=== PATIENT | male | born 1975 | race Caucasian/White ===

== ENCOUNTER 2020-03-04 16:49 | Emergency (ER) | payer BC, SELFPAY ==
--- NOTE | 2020-03-04 16:55 | ECG_ITS ---
APPROVED REPORT Exam: Resting ECG HR:105 bpm ECG Measurements Heart Rate 105 AXES OR 144 P 32 QRSd 102 QRS 18 QT 362 T 33 QTc 478 <Conclusion> Sinus tachycardia Incomplete right bundle branch block Borderline ECG Electronically signed by : Emiliano Jones, 03/05/2020 09:40:52
[2020-03-04 16:59] VITALS: BP 159/98; PULSE 111; RESP 17; TEMP 36.8; O2SAT 100; BMI 25.0
--- NOTE | 2020-03-04 17:03 | XR_ITS ---
PROCEDURE: XR CHEST 2V CLINICAL HISTORY: shortness of breath COMPARISON: No exams were available for comparison FINDINGS: The cardiomediastinal silhouette and pulmonary vascularity are within normal limits. No lobar consolidation or collapse. There is a 3 mm nodule in the right upper lobe at the 2nd interspace and 1 in the right upper lobe at the 3rd and 1 in the left apex interspace possibly due to granulomas and may be confirmed with follow-up. Straightening of the thoracic kyphosis. IMPRESSION: No acute finding. Two nodular opacities right upper lobe and 1 in the left apex nonspecific possibly due to granulomas and may be confirmed with follow-up Dictated by: Ludwin Deleon MD 03/04/2020 17:43 Ludwin Deleon MD in [place] 03/04/2020 17:43
--- NOTE | 2020-03-04 17:07 | HMH.EDGENADL ---
ED Disposition Clinical Impression: Lung granuloma, Tobacco use disorder Upper respiratory infection Qualifiers: URI type: unspecified viral URI Qualified Code(s): J06.9 - Acute upper respiratory infection, unspecified Disposition: Home, Self-Care Condition on Discharge: Good Instructions: DI for Pulmonary Nodule Additional Instructions: You have been evaluated for chest congestion, cough. COVID test negative today. Found to have a lung nodule. Please follow-up with your primary care doctor. Return to the emergency department if you have any new or worsening symptoms, shortness of breath, difficulty breathing, chest pain. Referrals: PCP,No [Primary Care Provider] - Forms: Work/School Release Time of Disposition: 18:11 - Critical Care Critical Care Time: No Attestation: On 03/04/20, the high probability of a clinically significant, sudden or life threatening deterioration of the following system(s) required my full and direct attention, intervention and personal management. The time I documented below is in addition to time spent performing reported procedures but includes the following listed in this critical care notation. Medical Decision Making - Medical Records Medical records reviewed: Yes: I reviewed the patient's medical records. - Rayshawn Inquiry Pt receiving controlled substance: No Vital Signs: 03/04/20 16:59 03/04/20 18:16 Temperature 98.2 F 98.3 F Temperature Source Oral Pulse Rate 85 Pulse Rate [Right Radial] 111 H Respiratory Rate 17 16 Blood Pressure 120/79 Blood Pressure [Right Arm] 159/98 H Blood Pressure Mean [Right Arm] 118 02 Sat by Pulse Oximetry 100 Oxygen Delivery Method Room Air - Lab Data Lab Results 03/04/20 17:01: WBC 14.1 H, RBC 4.62, Hgb 15.6, Hct 45.0, MCV 97.5 H, MCH 33.8 H, MCHC 34.6, RDW 13.7, Plt Count 341, MPV 7.7, Neut % (Auto) 67.8, Lymph % (Auto) 25.7, [place] % (Auto) 4.4, Eos % (Auto) 1.3, Baso % (Auto) 0.9, Neut # (Auto) 9.6 H, Lymph # (Auto) 3.7, [place] # (Auto) 0.6, Eos # (Auto) 0.2, Baso # (Auto) 0.1 03/04/20 17:01: Sodium 137, Potassium 4.1, Chloride 101, Carbon Dioxide 25, Anion Gap 11.0, BUN 9, Creatinine 1.00, Estimated Creat Clear 121, Estimated GFR 81, Est GFR ( Amer) 98, Glucose 187 H, Calcium 9.5, Total Bilirubin 0.4, AST 31, ALT 32, Alkaline Phosphatase 84, Troponin I < 0.01, Total Protein 8.1, Albumin 4.4, Globulin 3.7 H, Albumin/Globulin Ratio 1.2 03/04/20 17:05: SARS-CoV-2 IgG Ab (Rapid) Negative, SARS-CoV-2 IgM Ab (Rapid) Negative Result diagrams: 03/04/20 17:01 03/04/20 17:01 Orders (Tests/Meds): ORDERS Category Date Time Status Covid-19 Nasal PCR Sendout [facility] Stat Lab 03/04/20 17:25 Received Troponin I Q3H Lab 03/04/20 20:15 Ordered Troponin I Q3H Lab 03/04/20 23:15 Ordered - CONSUELO Score for Non-Stemi Age of Patient: 40-49 years old Heart Rate: 90-109 bpm Systolic Blood Pressure: 140-159 mmHg Serum Creatinine: 0.80-1.19 mg/dl CHF Killip Class: I-No CHF Other Risk Factors: None Non-Stemi Risk Score: 71 Medical Decision Narrative: In summary this is a 44-year-old male presenting to the emergency department with headache, chest congestion, dyspnea. Patient is clinically stable on arrival. Vital signs within normal limits with the exception of tachycardia. Concern for COVID-19, viral upper respiratory infection, pericarditis, other viral syndrome. Plan to obtain CBC, CMP, chest x-ray, EKG, troponin profile, COVID test. Initial laboratory results show white count of 14 K with neutrophil predominance. Other laboratory results are generally unremarkable. Chest x-ray shows 2 small abnormalities in the right upper lobe, concerning for granulomas. Patient is a cigarette smoker. I counseled him on tobacco cessation as well as the need to have follow-up with his primary care physician. COVID IgG and IgM negative. COVID swab pending. Patient counseled on infection prevention and self-isolation. Stable for discha
[2020-03-04 17:16] LABS: Basophils # 0.1 K/mm3 (0-0.2); Basophils % 0.9 % (0.1-2.0); Eosinophils # 0.2 K/mm3 (0.0-0.4); Eosinophils % 1.3 % (0.1-12.0); Hemoglobin 15.6 g/dL (14.1-18.0); Lymphocytes # 3.7 K/mm3 (0.7-4.5); Lymphocytes % 25.7 % (10-50); Mean Corpuscular HGB Conc 34.6 g/dL (31.8-35.4); Mean Corpuscular Hemoglobin 33.8 pg (27.0-31.2); Mean Corpuscular Volume 97.5 fl (80-94); Mean Platelet Volume 7.7 fl (7.4-10.4); Monocytes # 0.6 K/mm3 (0.1-1.0); Monocytes % 4.4 % (1.7-9.3); Neutrophils # 9.6 K/mm3 (1.8-7.8); Neutrophils % 67.8 % (37.0-80.0); Platelet Count 341 K/mm3 (142-424); Red Blood Count 4.62 M/mm3 (4.60-6.20); Red Cell Distribution Width 13.7 % (11.5-17.5); White Blood Count 14.1 K/mm3 (4.8-10.8)
[2020-03-04 17:20] LABS: Chloride 101 mmol/L (98-107); Potassium 4.1 mmoL/L (3.5-5.1); Sodium 137 mmol/L (136-145)
[2020-03-04 17:23] LABS: Alanine Aminotransferase 32 U/L (12-78); Albumin Level 4.4 g/dl (3.5-5.0); Albumin/Globulin Ratio 1.2 (1.1-1.8); Alkaline Phosphatase 84 U/L (38-126); Aspartate Amino Transferase 31 U/L (17-59); Bilirubin,Total 0.4 mg/dl (0.2-1.3); Blood Urea Nitrogen 9 mg/dl (9-20); Carbon Dioxide 25 mmol/L (22.0-30.0); Creatinine Clearance Estimated 121 mL/min (50-200); Estimated Glomerular Filt Rate 81 ml/min (>60); GFR (African American) 98 ML/MIN (>60); Globulin 3.7 g/dL (1.3-3.2); Total Protein,Serum 8.1 g/dl (6.3-8.2)
[2020-03-04 17:24] LABS: Calcium 9.5 mg/dl (8.4-10.2); Glucose 187 mg/dl (74-100)
[2020-03-04 17:37] LABS: Troponin I < 0.01 ng/ml (0.00-0.034)
[2020-03-04 17:58] LABS: Coronavirus 19 IgG Antibody Negative (Negative); Coronavirus 19 IgM Antibody Negative (Negative)
[2020-03-04 18:16] VITALS: BP 120/79; PULSE 85; RESP 16; TEMP 36.8; O2SAT 99
[2020-03-06 15:59] LABS: Covid-19 Nasal PCR Sendout Lex Not Detected
== END 2020-03-04 18:31 | disposition home or self-care (01) ==
PROVIDERS: Emergency Provider Emergency Medicine
DX: J84.10 Pulmonary fibrosis, unspecified (principal); J06.9 Acute upper respiratory infection, unspecified; F17.210 Nicotine dependence, cigarettes, uncomplicated; Z20.828 Contact with and (suspected) exposure to other viral communicable diseases
CPT/HCPCS: 71046; 80053; 84484; 85025; 86328; 93005; 99283; U0004

== ENCOUNTER 2022-03-05 11:01 | Emergency (ER) | payer BC, SELFPAY ==
[2022-03-05 13:15] VITALS: BP 163/96; PULSE 121; RESP 22; TEMP 37.4; O2SAT 99; BMI 27.5
[2022-03-05 13:32] LABS: UTC Influenza A Antigen Negative (Negative); UTC Influenza B Antigen Negative (Negative)
--- NOTE | 2022-03-05 13:40 | EXP.UTC ---
Discharge Plan Disposition Patient Disposition: Home, Self-Care Condition: Good Prescriptions Prescriptions: New methylprednisolone [Medrol (Rakan)] 4 mg tablets,dose pack 4 mg PO DAILY Qty: 21 0RF amoxicillin-pot clavulanate 500-125 mg Tablet 1 tab PO Q12H Qty: 20 0RF Referrals Follow up/Referrals: Provider,Referral, [Primary Care Provider] - See instructions Activity Restrictions/Add. Instructions Additional Instructions/Restrictions: *Monitor Temp, Over the counter Motrin or Tylenol as directed/as needed Tylenol every 4 hours and Motrin every 6 hours (as long as your family doctor has told you that you can take it) for fever or pain. and straight to ER if unable to lower temp less than 101.0 after medication given *Warm salt water gargles may help to soothe the throat *Throat Lozenges? *Warm fluids like tea with honey may help to soothe the throat? *Sleep elevated *Humidifier/Vaporizer Follow up IMMEDIATELY for new or worsening symptoms or no Noticeable improvement over the next 48-72 hours. 911 for difficulty breathing or swallowing You were tested for today for COVID19 your test result should be back in the next 24-48 hours, you may check your results on the [facility] My Health Portal Make sure to take your Vitamins Vit. C Vit D and Zinc if you can take them Clinical Impressions Clinical Impression: Sinusitis Stand Alone Forms Stand Alone Forms: Work/School Release Instructions Patient Instructions: Sinusitis, DI for Sinusitis Discharge ED Provider: Eileen Ya [facility] [place] HPI General Stated complaint: fever, muscle cramps, shaky Mode of Arrival: Ambulatory Source of Information: Patient Limitations: No Limitations Time Seen by Provider: 03/05/22 13:48 Description of Symptoms (Recalled from Triage Doc. by RN): PATIENT C/O FEVER, BODY ACHES, AND MUSCLE CRAMPS X 2 DAYS HEENT Symptoms (Recalled from RN notes): No Resp Symptoms (Recalled from RN notes): No Skin Symptoms (Recalled from RN notes): No MS Symptoms (Recalled from RN notes): No Functional Status (Recalled from RN notes): WNL History of Present Illness Provider Complaint: Patient states that he has been having body aches, chills, sinus congestion and pressure, pressure in his ears and fever for the last couple of days States that today the sinus pressure was worse and had a sinus headache so he came in to get checked States that he took a couple at home COVID test and they was negative Related Data Previous Rx's Medication Instructions Recorded amoxicillin 500 mg-potassium 1 tab PO Q12H #20 tabs 03/05/22 clavulanate 125 mg tablet methylprednisolone 4 mg tablets in 4 mg PO DAILY #21 tabs 03/05/22 a dose pack (Medrol (Rakan)) Allergies Allergy/AdvReac Type Severity Reaction Status Date / Time No Known Allergies Allergy Verified 03/04/20 17:03 Worker's Comp Is this a Worker's Comp case?: No PFSH PFSH 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 (Updated 03/05/22 @ 13:59 by Eileen Ya APRN) Hyperlipidemia Hypertension Surgical History (Updated 03/05/22 @ 13:28 by Marcelina Jiménez RN) H/O right heart catheterization Social History (Updated 03/05/22 @ 13:28 by Marcelina Jiménez RN) Smoking Status: Current every day smoker alcohol intake: current current occupational status: employed Travel in the last 8 weeks: None ROS Obtained: Yes All systems reviewed & no additional complaints except as documented and Yes Systems reviewed as appropriate & no additional complaints except as documented Constitutional Constitutional: Reports system reviewed and no additional complaints, except as documented, Reports as per HPI, Reports body ache, Reports chills, Reports fever(s) and Reports headache(s) ENT Ears, Nose, Mouth, and Throat: Reports system reviewed and no additional complaints, except as documented, Reports as per HPI, Reports otalgia, Reports headache(s), Reports sinus pain and Reports sinus pressure [facility]
[2022-03-05 14:12] VITALS: BP 163/96; PULSE 121; RESP 22; TEMP 37.4; O2SAT 99
== END 2022-03-05 14:16 | disposition home or self-care (01) ==
PROVIDERS: Emergency Provider Nurse Practitioner
DX: R50.9 Fever, unspecified (principal); R25.2 Cramp and spasm; R00.0 Tachycardia, unspecified; M79.10 Myalgia, unspecified site; R51.9 Headache, unspecified; Z20.822 Contact with and (suspected) exposure to COVID-19; I10 Essential (primary) hypertension; E78.5 Hyperlipidemia, unspecified; F17.210 Nicotine dependence, cigarettes, uncomplicated; Z79.52 Long term (current) use of systemic steroids; Z79.899 Other long term (current) drug therapy
CPT/HCPCS: 87804; 99213; C9803; G0463; U0003; U0005

== ENCOUNTER 2022-05-26 17:38 | Emergency (ER) | payer BC, SELFPAY ==
[2022-05-26 19:04] VITALS: BP 143/91; PULSE 99; RESP 18; TEMP 37.2; O2SAT 99; BMI 29.2
--- NOTE | 2022-05-26 19:25 | EXP.UTC ---
Discharge Plan Disposition Patient Disposition: Home, Self-Care Condition: Good Prescriptions Prescriptions: No Action methylprednisolone [Medrol (Rakan)] 4 mg tablets,dose pack 4 mg PO DAILY Qty: 21 0RF amoxicillin-pot clavulanate 500-125 mg Tablet 1 tab PO Q12H Qty: 20 0RF Referrals Follow up/Referrals: Melvin Rodriguez APRN [Primary Care Provider] - See instructions Clinical Impressions Clinical Impression: Upper respiratory infection Stand Alone Forms Stand Alone Forms: Work/School Release Instructions Patient Instructions: DI for Viral Upper Respiratory Infection -- Adult Discharge ED Provider: Marco Antonio CarrRUST)Rufina [facility] [place] HPI General Stated complaint: POSS FEVER, COUGH, CHILLS Mode of Arrival: Ambulatory Source of Information: Patient Limitations: No Limitations Time Seen by Provider: 05/26/22 19:25 Description of Symptoms (Recalled from Triage Doc. by RN): pt comes in with c/o fever, body aches, cough, chills. symptoms began today HEENT Symptoms (Recalled from RN notes): No Resp Symptoms (Recalled from RN notes): No Skin Symptoms (Recalled from RN notes): No MS Symptoms (Recalled from RN notes): Yes Functional Status (Recalled from RN notes): n/a History of Present Illness Provider Complaint: 46 yr old female c/o fever, body aches, cough, chills. symptoms began today feels like he did when he had covid Related Data Previous Rx's Medication Instructions Recorded amoxicillin 500 mg-potassium 1 tab PO Q12H #20 tabs 03/05/22 clavulanate 125 mg tablet methylprednisolone 4 mg tablets in 4 mg PO DAILY #21 tabs 03/05/22 a dose pack (Medrol (Rakan)) Allergies Allergy/AdvReac Type Severity Reaction Status Date / Time No Known Allergies Allergy Verified 05/26/22 19:09 Worker's Comp Is this a Worker's Comp case?: No [facility] Disclaimer: The information contained in this section may have been updated after the patient was seen, as this information can be updated by other users. 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) Smoking Status: Current every day smoker alcohol intake: current current occupational status: employed Travel in the last 8 weeks: None ROS Obtained: Yes All systems reviewed & no additional complaints except as documented and Yes Systems reviewed as appropriate & no additional complaints except as documented Constitutional Constitutional: Reports system reviewed and no additional complaints, except as documented, Reports as per HPI, Reports body ache, Reports chills, Reports fatigue and Reports fever(s) Eyes Eyes: Reports system reviewed and no additional complaints, except as documented and Reports as per HPI ENT Ears, Nose, Mouth, and Throat: Reports system reviewed and no additional complaints, except as documented, Reports as per HPI, Reports nasal congestion and Reports sore throat Cardiovascular Cardiovascular: Reports system reviewed and no additional complaints, except as documented and Reports as per HPI Respiratory Respiratory: Reports system reviewed and no additional complaints, except as documented and Reports as per HPI Gastrointestinal Gastrointestingal: Reports system reviewed and no additional complaints, except as documented and as per HPI Genitourinary Male Genitourinary: Reports system reviewed and no additional complaints, except as documented and Reports as per HPI Musculoskeletal Musculoskeletal: Reports system reviewed and no additional complaints, except as documented and Reports as per HPI Integumentary/Breasts Skin/Breast: Reports system reviewed and no additional complaints, except as documented and Reports as per HPI Neurologic Neurologic: Reports system reviewed and no additional compl
[2022-05-26 19:52] VITALS: BP 143/91; PULSE 99; RESP 18; TEMP 37.2
== END 2022-05-26 19:53 | disposition home or self-care (01) ==
PROVIDERS: Emergency Provider Nurse Practitioner Family; PCP Nurse Practitioner Family
DX: J06.9 Acute upper respiratory infection, unspecified (principal)
CPT/HCPCS: 87275; 87276; 99212; C9803; G0463; U0003; U0005

== ENCOUNTER 2023-06-25 13:37 | Emergency (ER) | payer BC, SELFPAY ==
[2023-06-25 13:45] VITALS: BP 148/104; PULSE 111; RESP 20; TEMP 36.9; O2SAT 98; BMI 29.0
--- NOTE | 2023-06-25 13:50 | EXP.UTC ---
Discharge Plan Disposition Patient Disposition: Home, Self-Care Condition: Good Prescriptions Prescriptions: New azithromycin [Zithromax] 250 mg tablet 250 mg PO UD DOSE PK Qty: 6 0RF Rx Instructions: Take two (2) tablets today, then one (1) tablet days #2 thru #5 benzonatate [benzonatate] 100 mg capsule 100 mg PO TIDP PRN (Reason: Cough) Qty: 30 0RF methylprednisolone 4 mg Tablets,Dose Pack 4 mg PO DIRECTED 6 Days Qty: 21 0RF Rx Instructions: Take 1 pack as directed for 6 days No Action atorvastatin 40 mg tablet 40 mg PO DAILY Patient Comments: TAKE 1 TABLET BY MOUTH AT BEDTIME metoprolol succinate 50 mg tablet extended release 24 hr 50 mg PO DAILY aspirin 81 mg Tablet,Chewable 81 mg PO DAILY lisinopril 5 mg tablet 10 mg PO AM Patient Comments: TAKE 2 TABLETS BY MOUTH ONCE DAILY IN THE MORNING AND 1 IN THE EVENING lisinopril 5 mg tablet 5 mg PO PM Patient Comments: TAKE 2 TABLETS BY MOUTH ONCE DAILY IN THE MORNING AND 1 IN THE EVENING Brilinta 90 mg tablet 90 mg PO BID Patient Comments: TAKE 1 TABLET BY MOUTH TWICE DAILY Referrals Follow up/Referrals: Provider,Referral, MD [Primary Care Provider] - See instructions Activity Restrictions/Add. Instructions Additional Instructions/Restrictions: Drink plenty of fluids. Take tylenol or ibuprofen for pain or fever. Take the medications as directed. Follow up with your regular doctor. GO TO THE ER FOR ANY WORSENING SYMPTOMS Clinical Impressions Clinical Impression: Acute bronchitis Stand Alone Forms Stand Alone Forms: Work/School Release Instructions Patient Instructions: Acute Bronchitis, DI for Acute Bronchitis Discharge ED Provider: Zac Call [facility] [place] General Stated complaint: cough, congestion Time Seen by Provider: 06/25/23 13:50 History of Present Illness Provider Complaint: He states that for the past 4 days he has had cough, chest congestion and sore throat. Related Data Home Medications Medication Instructions Recorded Confirmed aspirin 81 mg chewable tablet 81 mg PO DAILY 06/25/23 06/25/23 atorvastatin 40 mg tablet 40 mg PO DAILY 06/25/23 06/25/23 lisinopril 5 mg tablet 5 mg PO PM 06/25/23 06/25/23 lisinopril 5 mg tablet 10 mg PO AM 06/25/23 06/25/23 metoprolol succinate 50 mg 50 mg PO DAILY 06/25/23 06/25/23 tablet,extended release 24 hr ticagrelor 90 mg tablet (Brilinta) 90 mg PO BID 06/25/23 06/25/23 Previous Rx's Medication Instructions Recorded azithromycin 250 mg tablet 250 mg PO UD DOSE PK #6 tabs 06/25/23 (Zithromax) benzonatate 100 mg capsule 100 mg PO TIDP PRN Cough #30 caps 06/25/23 methylprednisolone 4 mg tablets in 4 mg PO DIRECTED 6 days #21 tabs 06/25/23 a dose pack Allergies Allergy/AdvReac Type Severity Reaction Status Date / Time No Known Allergies Allergy Verified 05/26/22 19:09 [facility] Disclaimer: The information contained in this section may have been updated after the patient was seen, as this information can be updated by other users. 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 (Updated 06/25/23 @ 14:28 by Zac Call APRN) Hyperlipidemia Hypertension Surgical History (Updated 06/25/23 @ 13:57 by Marcelina Jiménez RN) H/O right heart catheterization History of heart artery stent Social History , [employer]) Smoking Status: Current every day smoker alcohol intake: current current occupational status: employed Travel in the last 8 weeks: None ROS Obtained: Yes All systems reviewed & no additional complaints except as documented Constitutional Constitutional: Reports poor appetite Eyes Eyes: Reports system reviewed and no additional complaints, except as documented ENT Ears, Nose, Mouth, and Throat: Reports as per HPI Cardiovascular Cardiovascular: Reports system reviewed and no additional complaints, except as documented and Denies chest pain Respiratory Respiratory: Denies shortness of breath, Reports chest congestion, Reports cough, Denies stridor and Denies wheezing Gastrointestinal Gastrointestingal: Reports system reviewed and no additional complaints, except as documented; Denies abdominal pain, diarrhea or vomiting Musculoskeletal Musculoskeletal: Reports system reviewed and no additional complaints, except as documented and Denies arthralgias Integumentary/Breasts Skin/Breast: Reports system reviewed and no additional complaints, except as documented and Denies rash Neurologic Neurologic: Denies paresthesias Allergic/Immunologic Allergic/Immunologic: Denies wheezing Physical Exam General General appearance: alert and in no apparent distress Eye Eye exam: Present normal appearance, PERRL and EOMI ENT ENT exam: Present mucous membranes moist and normal external ear exam Expanded ENT Exam External ear exam: Present normal external inspection TM/Canal exam: Bilateral TM: erythema and bulging Nose exam: Absent sinus tenderness Nasal speculum exam: Bilateral: normal Mouth exam: Present normal external inspection; Absent drooling Teeth exam: Present normal inspection Throat exam: Present tonsillar erythema and tonsillomegaly Neck Neck exam: Present normal inspection, full ROM and trachea midline; Absent tenderness, lymphadenopathy or thyromegaly Chest Chest inspection: Present normal inspection and symmetric chest wall rise; Absent tenderness or rash Respiratory Respiratory exam: Present normal lung sounds bilaterally; Absent respiratory distress, wheezes, stridor or accessory muscle use Cardiovascular Cardiovascular exam: Present regular rate, normal rhythm and normal heart sounds Abdominal Exam Abdominal exam: Present soft; Absent distention, tenderness, guarding, rebound or rigidity Extremities Exam Extremities exam: Present normal inspection, full ROM and normal capillary refill; Absent tenderness or calf tenderness Back Exam Back exam: Present normal inspection and full ROM; Absent tenderness Neurological Exam Neurological exam: Present alert and oriented X3 Psychiatric Psychiatric exam: Present normal affect and normal mood Skin Skin exam: Present warm, dry, intact and normal color Lymphatic Lymphatic Findings: no adenopathy Medical Decision Making Medical Records Medical records reviewed: No I reviewed the patient's medical records. Rayshawn Inquiry Pt receiving controlled substance: No Lab Data Lab results reviewed: Yes I reviewed the patient's lab results.
[2023-06-25 14:29] VITALS: BP 148/104; PULSE 111; RESP 20; TEMP 36.9; O2SAT 98
== END 2023-06-25 14:32 | disposition home or self-care (01) ==
PROVIDERS: Emergency Provider Nurse Practitioner Family
DX: J20.9 Acute bronchitis, unspecified (principal); R05.9 Cough, unspecified; R07.0 Pain in throat; R09.89 Other specified symptoms and signs involving the circulatory and respiratory systems; E78.5 Hyperlipidemia, unspecified; I10 Essential (primary) hypertension; F17.210 Nicotine dependence, cigarettes, uncomplicated
CPT/HCPCS: 99212; 99214; G0463

== ENCOUNTER 2024-01-27 12:22 | Emergency (ER) | payer BC, SELFPAY ==
[2024-01-27 12:39] VITALS: BP 162/118; PULSE 98; RESP 20; TEMP 36.8; O2SAT 97; BMI 29.2
--- NOTE | 2024-01-27 12:39 | ED_ITS ---
Discharge Plan Disposition Patient Disposition: Home, Self-Care Condition: Good Prescriptions Prescriptions: New erythromycin 5 mg/gram (0.5 %) ointment 0.5 inch ophthalmic (eye) QID 7 Days Qty: 3.5 0RF methylprednisolone 4 mg Tablets,Dose Pack 4 mg PO DIRECTED 6 Days Qty: 21 0RF Rx Instructions: Take 1 pack as directed for 6 days No Action atorvastatin 40 mg tablet 40 mg PO DAILY Patient Comments: TAKE 1 TABLET BY MOUTH AT BEDTIME metoprolol succinate 50 mg tablet extended release 24 hr 50 mg PO DAILY aspirin 81 mg Tablet,Chewable 81 mg PO DAILY lisinopril 5 mg tablet 10 mg PO AM Patient Comments: TAKE 2 TABLETS BY MOUTH ONCE DAILY IN THE MORNING AND 1 IN THE EVENING lisinopril 5 mg tablet 5 mg PO PM Patient Comments: TAKE 2 TABLETS BY MOUTH ONCE DAILY IN THE MORNING AND 1 IN THE EVENING Brilinta 90 mg tablet 90 mg PO BID Patient Comments: TAKE 1 TABLET BY MOUTH TWICE DAILY azithromycin [Zithromax] 250 mg tablet 250 mg PO UD DOSE PK Qty: 6 0RF Rx Instructions: Take two (2) tablets today, then one (1) tablet days #2 thru #5 benzonatate [benzonatate] 100 mg capsule 100 mg PO TIDP PRN (Reason: Cough) Qty: 30 0RF methylprednisolone 4 mg Tablets,Dose Pack 4 mg PO DIRECTED 6 Days Qty: 21 0RF Rx Instructions: Take 1 pack as directed for 6 days Referrals Follow up/Referrals: Provider,Referral, MD [Primary Care Provider] - See instructions Activity Restrictions/Add. Instructions Additional Instructions/Restrictions: Go home and rest. It would be best if you rested tomorrow too. No heavy lifting. No twisting. Take the oral medications as directed. Don't start the oral steroids (medrol dose pack) until tomorrow, since you had the shots in here today. Follow up with your regular doctor. GO TO THE ER FOR ANY WORSENING SYMPTOMS OR CONCERN, ESPECIALLY BOWEL OR BLADDER ISSUES, SADDLE AREA NUMBNESS, FEVER, ETC Use the eye ointment as directed. Follow up with your regular doctor. GO TO THE ER FOR ANY WORSENING SYMPTOMS OR CONCERNS Clinical Impressions Clinical Impression: Conjunctivitis of right eye, Hip pain, left Stand Alone Forms Stand Alone Forms: Work/School Release Print Language Print Language: [place] Island[place] Discharge ED Provider: Zac Call [facility] [place] HPI General Stated complaint: right eye pain, left hip pain Time Seen by Provider: 01/27/24 12:39 History of Present Illness Provider Complaint: He states that he has had right eye redness and irritation since yesterday. He denies any injury or foreign body. He also c/o left hip pain for the past several days. He denies any injury or trauma. Related Data Home Medications ?Medication ?Instructions ?Recorded ?Confirmed aspirin 81 mg chewable tablet 81 mg PO DAILY 06/25/23 06/25/23 atorvastatin 40 mg tablet 40 mg PO DAILY 06/25/23 06/25/23 lisinopril 5 mg tablet 5 mg PO PM 06/25/23 06/25/23 lisinopril 5 mg tablet 10 mg PO AM 06/25/23 06/25/23 metoprolol succinate 50 mg 50 mg PO DAILY 06/25/23 06/25/23 tablet,extended release 24 hr ticagrelor 90 mg tablet (Brilinta) 90 mg PO BID 06/25/23 06/25/23 Previous Rx's ?Medication ?Instructions ?Recorded azithromycin 250 mg tablet 250 mg PO UD DOSE PK #6 tabs 06/25/23 (Zithromax) benzonatate 100 mg capsule 100 mg PO TIDP PRN Cough #30 caps 06/25/23 methylprednisolone 4 mg tablets in 4 mg PO DIRECTED 6 days #21 tabs 06/25/23 a dose pack erythromycin 5 mg/gram (0.5 %) eye 0.5 inch ophthalmic (eye) QID 7 01/27/24 ointment days #3.5 grams methylprednisolone 4 mg tablets in 4 mg PO DIRECTED 6 days #21 tabs 01/27/24 a dose pack Allergies Allergy/AdvReac Type Severity Reaction Status Date / Time No Known Allergies Allergy Verified 05/26/22 19:09 [facility] Disclaimer: The information contained in this section may have been updated after the patient was seen, as this information can be updated by other users. 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) Smoking Status: Current every day smoker alcohol intake: current alcohol intake frequency: a few times a month current occupational status: employed Travel in the last 8 weeks: None ROS Obtained: Yes All systems reviewed & no additional complaints except as documented Constitutional Constitutional: Denies chills and Denies fever(s) Eyes Eyes: Reports as per HPI, Denies change in vision and Reports eye discharge ENT Ears, Nose, Mouth, and Throat: Denies dizziness, Denies otalgia and Denies sore throat Cardiovascular Cardiovascular: Denies chest pain Respiratory Respiratory: Denies shortness of breath, Denies chest congestion, Denies cough, Denies stridor and Denies wheezing Gastrointestinal Gastrointestingal: Denies nausea or vomiting Genitourinary Male Genitourinary: Denies difficulty urinating Musculoskeletal Musculoskeletal: Reports as per HPI Integumentary/Breasts Skin/Breast: Denies redness, Denies rash and Denies wounds Neurologic Neurologic: Denies dizziness, Denies paresthesias and Denies radicular pain Allergic/Immunologic Allergic/Immunologic: Denies wheezing Physical Exam General General appearance: alert and in no apparent distress Head Head exam: atraumatic, normocephalic and normal inspection Eye Eye exam: Present PERRL and EOMI Expanded Eye Exam Eyelids: left: normal inspection and right: erythema Pupils: Left: size (2), Right: size (2) and Bilateral: regular, round and reactive Sclera/Conjunctival: left: normal inspection and right: injection and exudate ENT ENT exam: Present normal exam, normal oropharynx, mucous membranes moist, TM's normal bilaterally and normal external ear exam Neck Neck exam: Present normal inspection, full ROM and trachea midline; Absent meningismus or lymphadenopathy Chest Chest inspection: Present normal inspection and symmetric chest wall rise; Absent tenderness Respiratory Respiratory exam: Present normal lung sounds bilaterally; Absent respiratory distress Cardiovascular Cardiovascular exam: Present regular rate and normal rhythm; Absent JVD Abdominal Exam Abdominal exam: Present soft and normal bowel sounds; Absent distention, tenderness or guarding Extremities Exam Extremities exam: Present normal inspection, full ROM and normal capillary refill; Absent calf tenderness Back Exam Back exam: Present normal inspection; Absent tenderness Neurological Exam Neurological exam: Present alert and oriented X3 Psychiatric Psychiatric exam: Present normal affect and normal mood Skin Skin exam: Present warm, dry, intact and normal color Lymphatic Lymphatic Findings: no adenopathy Medical Decision Making Medical Records Medical records reviewed: No I reviewed the patient's medical records. [place] Inquiry Pt receiving controlled substance: No
[2024-01-27 13:33] VITALS: BP 162/118; PULSE 98; RESP 20; TEMP 36.8; O2SAT 97
== END 2024-01-27 13:35 | disposition home or self-care (01) ==
PROVIDERS: Emergency Provider Nurse Practitioner Family
DX: M25.552 Pain in left hip (principal); H10.31 Unspecified acute conjunctivitis, right eye
CPT/HCPCS: 99212; 99214; G0463